=== PATIENT | female | born 2000 | race Caucasian/White ===

== ENCOUNTER 2024-04-13 16:56 | Emergency (ER) | payer OTHER ==
[~2024-04-13] VITALS: Ht 160 cm; Wt 60.8 kg
[2024-04-13] MEDS ORDERED: AMOXIL500 M1 (17:46)
[2024-04-13] MEDS ORDERED: PRENATAL TABLE1 EAC2 PO (17:47)
[2024-04-13] MEDS ORDERED: NS 1,000 ML IV SCH (18:00)
[2024-04-13 18:08] LABS: BASO # 0.04 K/mm3 (0.02-0.10); EOS # 0.18 K/mm3 (0.04-0.40); HEMATOCRIT 42.7 % (37.0-47.0); HEMOGLOBIN 14.7 g/dL (12.5-16.0); LYMPH# 2.41 K/mm3 (1.50-4.00); MEAN CELL VOLUME 92 fl (78-100); MEAN CORPUSCULAR HEMOGLOBIN 32 pg (27-31); MEAN CORPUSCULAR HGB CONC 34 g/dL (33-37); MONO # 0.59 K/mm3 (0.20-0.80); NEU # 5.75 K/mm3 (1.40-6.50); PLATELET COUNT 269 K/mm3 (130-400); RED BLOOD COUNT 4.62 M/mm3 (4.10-5.30); RED CELL DISTRIBUTION WIDTH 11.5 % (11.5-14.5)
[2024-04-13 18:16] LABS: ALBUMIN 4.8 g/dL (3.5-5.0)
[2024-04-13 18:17] LABS: CALCIUM 10.1 mg/dL (8.3-10.5)
[2024-04-13 18:18] LABS: TOTAL PROTEIN 7.9 g/dL (6.4-8.3)
[2024-04-13 18:20] LABS: TOTAL BILIRUBIN 0.3 mg/dL (0.2-1.2)
[2024-04-13 19:20] LABS: URINE APPEARANCE CLEAR (CLEAR); URINE BILIRUBIN NEGATIVE (NEGATIVE); URINE BLOOD TRACE-INTACT (NEGATIVE); URINE COLOR YELLOW (YELLOW); URINE GLUCOSE NEGATIVE (NEGATIVE); URINE KETONE NEGATIVE (NEGATIVE); URINE LEUKOCYTE ESTERASE NEGATIVE (NEGATIVE); URINE NITRATE NEGATIVE (NEGATIVE); URINE PROTEIN(semi-quant) NEGATIVE (NEGATIVE); URINE WBC 0-1 /hpf (0-3)
[2024-04-13 20:05] VITALS: BP 107/64
== END 2024-04-13 20:05 | disposition home or self-care (01) ==
LOC: ED 16:56
PROVIDERS: Physician Assistant
DX: R42 Dizziness and giddiness (principal)
CPT/HCPCS: J7030

== ENCOUNTER 2024-08-03 22:22 | Emergency (ER) | payer OTHER ==
[~2024-08-03] VITALS: Ht 160 cm; Wt 62.3 kg
[~2024-08-03 22:22] MED LIST: AMOXIL500 M1; PRENATAL TABLE1 EAC2 PO
[2024-08-03] MEDS ORDERED: Ondansetron 4 MG/2 ML VIAL IV ONE (22:45)
[2024-08-03] MEDS ORDERED: NS 1,000 ML IV SCH (22:45)
[2024-08-03] MEDS ORDERED: Ketorolac 30 MG/ML VIAL IV ONE (22:45)
[2024-08-03 22:49] LABS: BASO # 0.02 K/mm3 (0.02-0.10); EOS # 0.08 K/mm3 (0.04-0.40); HEMATOCRIT 39.1 % (37.0-47.0); HEMOGLOBIN 13.2 g/dL (12.5-16.0); LYMPH# 0.88 K/mm3 (1.50-4.00); MEAN CELL VOLUME 96 fl (78-100); MEAN CORPUSCULAR HEMOGLOBIN 32 pg (27-31); MEAN CORPUSCULAR HGB CONC 34 g/dL (33-37); MEAN PLATELET VOLUME 9.1 fl (7.4-10.4); MONO # 0.66 K/mm3 (0.20-0.80); NEU # 5.97 K/mm3 (1.40-6.50); PLATELET COUNT 211 K/mm3 (130-400); RED BLOOD COUNT 4.09 M/mm3 (4.10-5.30); RED CELL DISTRIBUTION WIDTH 11.6 % (11.5-14.5); WHITE BLOOD COUNT 7.6 K/mm3 (4.8-10.8)
[2024-08-03 22:57] LABS: ALBUMIN 4.4 g/dL (3.5-5.0)
[2024-08-03 22:59] LABS: CALCIUM 9.6 mg/dL (8.3-10.5)
[2024-08-03 23:00] LABS: TOTAL PROTEIN 7.1 g/dL (6.4-8.3)
[2024-08-03 23:02] LABS: TOTAL BILIRUBIN 0.6 mg/dL (0.2-1.2)
[2024-08-03] MEDS ORDERED: Acetaminophen 325 MG TAB PO ONE (23:15)
[2024-08-04] MEDS ORDERED: ONDANSETRON HYDR4 MG PO (00:20)
[2024-08-04 00:34] VITALS: BP 90/47
== END 2024-08-04 00:25 | disposition home or self-care (01) ==
LOC: ED 22:22
PROVIDERS: Physician Assistant
DX: B34.9 Viral infection, unspecified (principal); R50.9 Fever, unspecified; R09.81 Nasal congestion; R52 Pain, unspecified; R05.9 Cough, unspecified
CPT/HCPCS: J1885; J2405; J7030